=== PATIENT | male | born 1970 | race Caucasian/White ===

== ENCOUNTER 2020-10-21 07:31 | Outpatient (CLI) | payer BC, SELFPAY ==
--- NOTE | ~2020-10-21 | CT_ITS ---
EXAMINATION: CT abdomen wo con DATE: 10/21/2020 08:11 INDICATION: Ventral hernia without obstruction or gangrene TECHNIQUE: Computed tomography (CT) of the abdomen was performed without intravenous contrast. The do se-length product (DLP) was 788.58 mGy-cm. Automated exposure control and iterative reconstruction te chnique were employed. COMPARISON: None FINDINGS: Minimal dependent atelectasis is present in the lung bases. The heart size is normal. There is a 5 mm subpleural nodule of the lingula. The liver is diffusely low in attenuation when compared with the spleen, consistent with hepatic steatosis. A stone is present in the nondistended gallbladde r. The spleen, pancreas, and adrenal glands are normal. There are no pathologically enlarged abdomina l lymph nodes. The right kidney is normal. Nonobstructing stones of the left kidney measure 6 mm, 7 m m, and 2 mm. There is a 1.6 cm soft tissue density mass of the left kidney upper pole. There is a mid line epigastric hernia containing fat with a 1.8 cm neck approximately 4.5 cm above the umbilicus. A 3.1 cm area contiguous with the omental fat but just inside the abdomen at the site of the hernia lik herb reflects a small area of fat necrosis. There is a small extrarenal hernia. There are no dilated l oops of bowel. IMPRESSION: 1. Midline epigastric hernia containing fat with likely small amount of intra-abdominal fat necrosis of the omentum at this level. Small umbilical hernia containing fat. 2. Indeterminate soft tissue density lesion of the left kidney. Further evaluation by CT or MRI witho ut and with contrast is recommended. 4. Nonobstructing left nephrolithiasis. Reviewed, dictated and finalized at location A. IMPRESSION: 1. Midline epigastric hernia containing fat with likely small amount of intra-a bdominal fat necrosis of the omentum at this level. Small umbilical hernia cont aining fat. 2. Indeterminate soft tissue density lesion of the left kidney. Further evaluat ion by CT or MRI without and with contrast is recommended. 4. Nonobstructing left nephrolithiasis.
== END 2020-10-21 07:32 ==
PROVIDERS: Visit Provider Surgery
DX: K43.9 Ventral hernia without obstruction or gangrene (principal); R10.13 Epigastric pain; N20.0 Calculus of kidney
CPT/HCPCS: 74150

== ENCOUNTER 2020-10-21 08:16 | Outpatient (CLI) | payer BC, SELFPAY ==
--- NOTE | 2020-10-21 10:30 | ECG_ITS ---
Measurements Intervals Adin Rate: 83 P: 26 WA: 130 QRS: 21 QRSD: 111 T: 37 QT: 348 QTc: 409 Interpretive Statements SINUS RHYTHM INTRAVENTRICULAR CONDUCTION DELAY BASELINE ARTIFACT- I, III, AVL BORDERLINE ECG Electronically Signed On 10-21-2020 8:57:43 CDT by Jefferson Gomez D.O.
== END 2020-10-21 08:17 | disposition home or self-care (01) ==
LOC: ANHSURGERY 08:21
PROVIDERS: Visit Provider Surgery
DX: Z01.818 Encounter for other preprocedural examination (principal); K43.9 Ventral hernia without obstruction or gangrene; F17.200 Nicotine dependence, unspecified, uncomplicated
CPT/HCPCS: 36415; 86850; 86900; 86901; 93005

== ENCOUNTER → 2020-10-25 04:08 | Outpatient (CLI) | payer BC, SELFPAY ==
[2020-10-25 19:46] LABS: SARS-CoV-2 RNA PCR Negative
== END ==
PROVIDERS: Visit Provider Surgery
DX: Z01.812 Encounter for preprocedural laboratory examination (principal); Z20.822 Contact with and (suspected) exposure to COVID-19
CPT/HCPCS: C9803; U0003; U0005

== ENCOUNTER 2020-10-28 14:06 | Outpatient (CLI) | payer BC, SELFPAY ==
--- NOTE | ~2020-10-28 | CT_ITS ---
EXAMINATION: CT abdomen wo/w con DATE: 10/28/2020 14:32 INDICATION: Left kidney mass. TECHNIQUE: Computed tomography (CT) of the abdomen was performed without and with 100 mL Omnipaque 35 0 intravenous contrast. Automated exposure control and iterative reconstruction technique were employ ed. The dose-length product was 1507.64 mGy-cm. COMPARISON: CT abdomen 10/21/2020 FINDINGS: The visualized portions of the lung bases demonstrate mild atelectasis. There is a 7 mm nod ule in right middle lobe. No pleural effusion. The heart size is normal. No pericardial effusion. The re is diffuse hepatic steatosis. There is a gallstone in the gallbladder, which is normal in size. Th e spleen, pancreas, and adrenal glands are normal. There are cysts in the kidneys measuring up to 19 mm on the right. There is a 2.2 cm enhancing mass in left kidney upper pole directed posteriorly. The re are 3 stones in left kidney measuring up to 6 mm. There are umbilical and supraumbilical ventral h ernias containing fat. Again seen is fat stranding in the hernias and in the greater omentum, consist ent with fat necrosis. There are no pathologically enlarged lymph nodes. There is no free intraperito rao fluid. . IMPRESSION: 1. 2.2 cm enhancing mass in left kidney, consistent with renal cell carcinoma. 2. 7 mm pulmonary nodule, probably benign. Noncontrast low-dose chest CT is recommended in 6 months. 3. Umbilical and supraumbilical ventral hernias containing fat with associated fat necrosis. 4. Diffuse hepatic steatosis. Reviewed, dictated and finalized at location A. IMPRESSION: 1. 2.2 cm enhancing mass in left kidney, consistent with renal cell carcinoma. 2. 7 mm pulmonary nodule, probably benign. Noncontrast low-dose chest CT is rec ommended in 6 months. 3. Umbilical and supraumbilical ventral hernias containing fat with associated fat necrosis. 4. Diffuse hepatic steatosis.
[2020-10-28 14:23] LABS: Estimated Glomerular Filt Rate > 60
== END 2020-10-28 14:07 ==
LOC: MICIMG 14:06
PROVIDERS: Visit Provider Surgery
DX: N28.89 Other specified disorders of kidney and ureter (principal); R91.1 Solitary pulmonary nodule; K42.9 Umbilical hernia without obstruction or gangrene; K76.0 Fatty (change of) liver, not elsewhere classified
CPT/HCPCS: 74170; Q9967

== ENCOUNTER 2020-10-29 01:43 | Day surgery (SDC) | payer BC, SELFPAY ==
[2020-10-17 14:39] VITALS: BMI 18.6
[2020-10-29] VITALS (12 sets, daily range): BP systolic 119–177; BP diastolic 78–118; PULSE 76–89; RESP 13–20; TEMP 36.1–36.6; O2SAT 93–98
[2020-10-29] MEDS: LACTATED RINGERS 1,000 ML 30 ML IV CONT ×2 (07:59→11:29)
[2020-10-29] MEDS: ACETAMINOPHEN 500 MG TABLET 1000 MG PO (08:00)
[2020-10-29] MEDS: KETOROLAC 15 MG/ML VIAL (*BKC) IV PUSH (08:00)
--- NOTE | 2020-10-29 08:19 | WPDANESEPPF ---
Anes - Initial Pre Proc Eval Procedure: Operation Date: 10/29/20 09:30 Proposed Procedures p Laparoscopic Ventral Hernia Repair With Mesh, Da Beatriz Assisted - Sabino Daniel DO Date/Time: 10/29/20 08:19 Surgeon: Sabino Daniel DO Pre Op Diagnosis: ventral hernia Patient Data Age: 50 Gender: M Height: 5 ft 10 in Weight: 59 kg Allergies Allergy/AdvReac Type Severity Reaction Status Date / Time No Known Allergies Allergy Verified 10/17/20 14:39 Home Medications Medication Instructions Recorded Confirmed Type albuterol sulfate 90 mcg/actuation 2 inh INHALATION Q4H PRN #8.5 g 10/13/20 10/22/20 Rx aerosol inhaler Patient hx anesthesia problems: none Family hx anesthesia problems: none PMFSH Past Medical History Medical History Chronic right shoulder pain GERD without esophagitis History of diverticulitis 2018 History of kidney stones Hx of blood clots 2018 - large intestine wall Surgical History Surgical History History of arthroscopic surgery of shoulder 1990 - Left Family History Family History Father COPD (chronic obstructive pulmonary disease) Mother Hypertension Grandparent Cerebrovascular accident Emphysema lung Grandparent Heart disease Acute myocardial infarction Social History Social History Smoking packs per day: 1 Smoking cigarettes per day: 20.0 Years smoked: 35 Smoking pack-years: 35.00 Smoking status: Current every day smoker Tobacco type: cigarettes Alcohol intake: current Alcohol use details: 4/MONTH Substance use: never Substance use type: does not use Living arrangements: with family Additional living arrangements comments: Gender identity (if verbalized by the patient): Male Spiritual care concerns: No Agree to blood products: Yes Anes - Eval Final PreProcedure Day of Procedure 10/29/20 08:19 Patient weight: obese Heart: regular rate and rhythm Lungs: clear to auscultation Airway: Mallampati scale class II Neurological: alert and oriented Last oral intake: >/= 8 hours ASA classification: III Emergent: no Anesthetic plan: proceed Anesthesia type and monitoring: general ETT and standard monitoring Informed Consent: The patient's anesthetic plan and its attendant risks and benefits were discussed with the patient/family/POA. Questions were solicited and answers provided to the satisfaction of the patient/family/POA.
--- NOTE | 2020-10-29 09:08 | WPDHPUPDATE1 ---
History and Physical Update Update Date/Time: 10/29/20 09:08 History and Physical has been reviewed, including an updated exam of the patient. There are NO changes in the patient's condition. Risks, benefits, and alternatives have been discussed and questions answered. Patient agrees to proceed with procedure.
[2020-10-29] MEDS: ceFAZolin 2 GM/D5W 50 ML 2 GM/50 ML BAG IVPB (09:34)
--- NOTE | 2020-10-29 11:43 | PM.PROC ---
Procedure Note - Detailed Date of procedure: 10/29/20 Pre-op diagnosis: ventral hernia Post-op diagnosis: other (Incarcerated ventral hernia, umbilical hernia) Procedure performed: Laparoscopic incarcerated ventral hernia repair with Symbotex mesh, da Beatriz assisted Description of procedure: Procedure as well as risks, benefits, and alternatives were discussed with the patient. Written consent was obtained and placed in chart prior to procedure. Patient was brought back to surgical suite. He was placed supine on operating table. Time-out was done to confirm patient and procedure. He was then intubated by the anesthesia department. A bump was placed under his left hip, and the bed was flexed slightly to extend the space between his costal margin and iliac crest. His abdomen was prepped and draped in sterile fashion using chlorhexidine prep. A 5 millimeter incision was made in the left upper quadrant, and a 5 millimeter Optiview trocar was advanced through the abdominal layers under direct visualization. Once inside the abdominal cavity, carbon dioxide insufflation was used to create a pneumoperitoneum. His abdomen was inspected. An 8 millimeter incision was made in the left lower quadrant, and an 8 millimeter robotic trocar was placed under direct visualization. Another 8 millimeter incision was made in the left lateral abdomen, and an 8 millimeter robotic trocar was placed under direct visualization. Exparel was infiltrated along the lateral abdominal rehman to perform a transversus abdominis plane block bilaterally. The 5 millimeter port was removed, the incision was extended to 12 millimeters, and a 12 millimeter air seal port was placed under direct visualization. A Reji-Wright cone was also used to place an 0-Vicryl simple interrupted suture at this trocar site. The robotic arms were brought up to the patient's bedside and secured to the ports. The camera and instruments were inserted, and I then moved over to the robotic console and took control of the camera and instruments. After careful thorough inspection of the abdominal cavity, I began my dissection at the hernia. There was a supraumbilical ventral hernia incarcerated with omentum. The omentum was carefully reduced using blunt dissection and scissors with electrocautery. The patient was also found to have an umbilical hernia. The ventral hernia was about 2 cm wide and located about 3 cm superior to the umbilicus. The umbilical hernia measured 1 cm. The hernia sac of the ventral hernia was excised and removed and sent to the lab for pathology. The fascia was closed using an 0-Stratafix running suture in a vertical fashion. A 15 cm x 10 cm Symbotex mesh was then placed within the abdominal cavity. This was oriented vertically with the mesh centered on the hernia defect. The mesh was then secured to the fascia along the perimeter using 2 0 V lock running absorbable suture. The repair was inspected, and one final inspection was made around the abdominal cavity. The robotic instruments were then removed, and the robotic arms were disengaged from the trocars. The ports were then removed under direct visualization, the camera was removed, and the pneumoperitoneum was released. The 0 Vicryl transfascial suture was tied down. The skin of the incisions was then approximated using 4-0 Monocryl subcuticular suture. Exofin glue was then applied on top. The patient was then awakened from anesthesia, extubated, and transferred to recovery. Implants: Symbotex 15 cm x 10 cm mesh Anesthesia: GETA and local (Exparel) Surgeon: Sabino Daniel DO Estimated blood loss (mL): 5 Drains: No Pathology: yes (Ventral hernia sac) Complications: No immediate complications Condition: stable Disposition: same day Findings: This is a 50-year-old man who presents with a hernia that he 1st noticed about 4 years ago. The hernia is located just superior to his umbilicus. He has noticed this has gotten larger ove
[2020-10-29] MEDS: fentaNYL CITRATE INJ (*CRX) 100 MCG/2 ML VIAL 25 MCG IV PUSH ×4 (12:30→13:53)
[2020-10-29] MEDS: oxyCODONE HCL (*CRX) 5 MG TAB IR PO (13:26)
== END 2020-10-29 14:18 | disposition home or self-care (01) ==
PROVIDERS: Visit Provider Surgery
PROC: (CPT 49653; principal; 2020-10-29 09:30)
DX: K43.6 Other and unspecified ventral hernia with obstruction, without gangrene (principal); K42.9 Umbilical hernia without obstruction or gangrene; K21.9 Gastro-esophageal reflux disease without esophagitis; Z79.51 Long term (current) use of inhaled steroids; F17.210 Nicotine dependence, cigarettes, uncomplicated; E66.9 Obesity, unspecified; Z68.32 Body mass index [BMI] 32.0-32.9, adult
CPT/HCPCS: 49653; S2900; 36415; 86850; 86900; 86901; 88300; 93005; A9270; C1781; C9290; C9803; J0690; J1100; J1885; J2250; J2405; J2704; J2710; J3010; J7120; U0003; U0005

== ENCOUNTER 2020-12-25 08:16 | Outpatient (CLI) | payer BC, SELFPAY ==
--- NOTE | ~2020-12-25 | MR_ITS ---
EXAMINATION: MR shoulder RT wo con DATE: 12/25/2020 09:04 INDICATION: Right shoulder pain and limited range of motion TECHNIQUE: Magnetic resonance imaging (MRI) of the right shoulder was performed without intravenous c ontrast. Sequences included axial PD-weighted FS FSE, coronal oblique PD-weighted FS FSE, coronal obl ique T2-weighted FS FSE, sagittal PD-weighted FS FSE, and sagittal T1-weighted SE. COMPARISON: Shoulder radiograph dated 11/15/2020 FINDINGS: Coracoacromial arch: The acromion undersurface is curved in morphology (type II) with mild anterior and lateral downslopin g. The coracoacromial ligament is normal. Moderate acromioclavicular osteoarthritis with small inferi kathy directed osteophytes which contacts but does not exert mass effect upon the underlying supraspin atus. Rotator cuff: Mild supraspinatus tendinopathy with articular sided tear involving the entire AP width of the extend ing into the conjoined portion of the supraspinatus and infraspinatus tendons. This involves greater than 50% of the tendon thickness. Centrally within the region of the articular sided tear is a full-t hickness component to the tear which measures 1.5 cm AP as well as 1.5 cm medial collateral. The tear begins in the critical zone approximately 1 cm medial to the footplate. Moderate infraspinatus and m ild subscapularis tendinopathy without discrete tears. The teres minor tendon is normal. Normal rotat or cuff muscle bulk and signal. Biceps tendon, glenoid labrum and glenohumeral cartilage: Long head of the biceps tendon is normal. There is a tear of the superior to posterior glenoid labrum extending from the 12:30 position anteriorly and extending posteriorly to the 9:00 position. More am orphous mild increased signal at the inferior and anteroinferior labrum consistent with mild degenera tion. Mild partial-thickness cartilage loss with smooth chondral surface along the cephalad third of the glenoid and at the inferomedial and cephalad aspects of the humeral head. Fluid: Physiologic amount of fluid in the glenohumeral joint and biceps tendon sheath. There is extension of a minimal amount fluid into the subacromial/subdeltoid bursa through the full-thickness rotator cuff tear. No loose osteochondral bodies. Bones: Likely degenerative joint centered marrow edema at both sides of the acromioclavicular joint. Otherwi se normal marrow signal with no fracture or pathologic marrow replacing process. IMPRESSION: 1. Moderate to severe articular sided tear involving the entire AP width of the supraspinatus and con joined portion of the supraspinatus and infraspinatus tendons with central full-thickness 1.5 x 1.5 c m tear defect at the critical zone. 2. Mild glenohumeral osteoarthritis with tear of the superior to posterior glenoid labrum and mild de generation along inferior to anteroinferior labrum. 3. Moderate acromioclavicular osteoarthritis. Reviewed, dictated and finalized at location A. IMPRESSION: 1. Moderate to severe articular sided tear involving the entire AP width of the supraspinatus and conjoined portion of the supraspinatus and infraspinatus ten dons with central full-thickness 1.5 x 1.5 cm tear defect at the critical zone. 2. Mild glenohumeral osteoarthritis with tear of the superior to posterior luke oid labrum and mild degeneration along inferior to anteroinferior labrum. 3. Moderate acromioclavicular osteoarthritis.
== END 2020-12-25 08:17 ==
PROVIDERS: Visit Provider Orthopaedic Surgery
DX: M75.101 Unspecified rotator cuff tear or rupture of right shoulder, not specified as traumatic (principal); M19.011 Primary osteoarthritis, right shoulder; S43.491A Other sprain of right shoulder joint, initial encounter
CPT/HCPCS: 73221

== ENCOUNTER 2020-12-26 08:37 | Outpatient (CLI) | payer BC, SELFPAY ==
--- NOTE | 2021-01-19 10:43 | WPDHOMESLEEP ---
Sleep Study - Home Unattended Date of Study: 12/26/20 Ordering Provider: Fatuma Kulkarni MD Interpreting Provider: Debbi Medina MD Home Sleep Study Type: Apnea Link Air Height: 1.78 m Weight: 104.326 kg Body Mass Index: 33.0 Neck Circumference (inches): 17 [place]: 5 Reason for Sleep Study Fatigue, snoring Sleep History Nura Macdonald is a 50 year old man with complaints of snoring and fatigue. He occasionally sweats excessively at night, rarely falls asleep in the day, He never falls asleep involuntarily or while driving. He does not have loss of muscles tone with strong emotion or feel paralyzed on waking or falling asleep. Does not have vivid dreams on waking or falling asleep. He rarely has uncomfortable feelings in his legs, denies legs kicking at night. He occasionally remembers his dreams. He always has daytime sleepiness, occasionally has heartburn at night, rarely wakes up feeling refreshed. He is constant;y bothered by pain in the day, and wakes up due to pain at night. He feels stiff in the morning, waking with sore achy muscles. Normal bedtime is between 11 pm and 2 am, falling asleep in 30 seconds, waking 3-5 times in the night to urinate, roll over and go back to sleep. He wakes at 7 am. The weekend schedule is the same. He works many 10 to 16 hour days. He has gained weight in the last year. He does not take naps. Short naps are not refreshing. He is drowsy in the morning for 3 hours or longer. Habits: Tobacco 1 pack per day. Caffeine : 6 per day. Alcohol: maybe 1 a day. No recreational drugs. [facility] Past Medical History Medical History Arthritis of shoulder region, right Chronic right shoulder pain COPD (chronic obstructive pulmonary disease) GERD without esophagitis Hepatic steatosis History of diverticulitis 2019 History of kidney stones Hx of blood clots 2019 - large intestine wall Internal impingement of right shoulder Pulmonary nodule Right rotator cuff tendinitis Surgical History Surgical History H/O ventral hernia repair 10/29/20 Laparoscopic incarcerated ventral hernia repair with Symbotex mesh, da Beatriz assisted History of arthroscopic surgery of shoulder 1991 - Left History of umbilical hernia repair 10/29/20 Family History Family History Father COPD (chronic obstructive pulmonary disease) Mother Hypertension Grandparent Cerebrovascular accident Emphysema lung Grandparent Heart disease Acute myocardial infarction Social History Social History Smoking packs per day: 1 Smoking cigarettes per day: 20.0 Years smoked: 30 Smoking pack-years: 30.00 Tobacco type: cigarettes Alcohol intake: current Alcohol use details: 4 per month Substance use: never Substance use type: does not use Additional living arrangements comments: Gender identity (if verbalized by the patient): Male Spiritual care concerns: No Agree to blood products: Yes Medications Home Medications Medication Instructions Recorded Confirmed Type atorvastatin 10 mg tablet 10 mg PO QHS #90 tablet 11/26/20 12/18/20 Rx cholecalciferol (vitamin D3) 1,250 1,250 mcg PO WEEKLY #12 cap 11/26/20 12/18/20 Rx mcg (50,000 unit) capsule albuterol sulfate 90 mcg/actuation 2 inh INHALATION Q4H PRN #8.5 g 12/30/20 Rx aerosol inhaler Sleep Procedure This test was performed using 4 channel monitoring including respiratory effort channel, snoring channel, heart rate channel, and oxygen saturation channel. This study was scored using CMS guidelines. Sleep Architecture Not applicable for home sleep test. Respiratory Analysis Recording time 6 hours 24 minutes. Evaluation time 1 hour 34 minutes. The apnea-hypopnea index is 7; there are 4 apneas. There ar
[2021-01-19 11:28] VITALS: BMI 33.0
== END 2020-12-29 12:23 | disposition home or self-care (01) ==
LOC: ANHCSM 08:39
PROVIDERS: Visit Provider Family Medicine
DX: G47.33 Obstructive sleep apnea (adult) (pediatric) (principal)
CPT/HCPCS: 95806

== ENCOUNTER 2021-07-09 08:02 | Outpatient (CLI) | payer BC, SELFPAY ==
--- NOTE | ~2021-07-09 | CT_ITS ---
EXAMINATION:CT diagnostic chest wo con DATE: 07/09/2021 09:43 INDICATION: Solitary pulmonary nodule. TECHNIQUE: Computed tomography (CT) of the chest was performed without intravenous contrast. Automate d exposure control and iterative reconstruction technique were employed. The dose-length product (DLP ) was 218.78 mGy-cm. COMPARISON: CT abdomen 10/28/2020 FINDINGS: There is mild emphysema. There is a 7 mm nodule in right middle lobe, stable from 10/28/20. T here are multiple other scattered nodules in the lungs measuring up to 5 mm. No pleural effusion. The heart size is normal. There are coronary artery calcifications. No pericardial effusion. There is di ffuse hepatic steatosis. There is a gallstone in the gallbladder, which is normal in size. Partially visualized is a 1.7 cm mass in left kidney that enhanced on the prior CT. There is mild thoracic spon dylosis. IMPRESSION: 1. Pulmonary nodules measuring up to 7 mm, likely benign. 2. Partially visualized 1.7 cm mass in left kidney that enhanced on the prior CT, consistent with handy al cell carcinoma. 3. Mild emphysema. Reviewed, dictated and finalized at location E. UROLOGIST IMPRESSION: 1. Pulmonary nodules measuring up to 7 mm, likely benign. 2. Partially visualized 1.7 cm mass in left kidney that enhanced on the prior C T, consistent with renal cell carcinoma. 3. Mild emphysema.
--- NOTE | 2021-07-09 12:10 | WPDPFTINT ---
PFT Procedure Performed PFT Procedure Performed Spirometry with Pre/Post Bronchodilator Plethysmography (Lung Vol) Diffusing Cap (DLCO) Flow Vol Loop PFT Interpretation This is a pulmonary function test with pre and post-bronchodilator spirometry, plethysmography and diffusing capacity. The test was performed and results interpreted in accordance with the 2019 and 2005 ATS/ERS Task Force guidelines respectively using the Global Lung Function Initiative-2012 reference equations. Patient demonstrated good effort and cooperation. Reproducibility criteria were met. The quality of the pre bronchodilator spirometry maneuver was Grade A and post bronchodilator spirometry maneuver was Grade A. Findings: Spirometry: There is decreased maximal expiratory airflow at low lung volumes with concave expiratory flow tracing. The pre bronchodilator FVC is 4.33 L, 86% predicted. The pre bronchodilator FEV1 is 2.93 L, 74% predicted. The FEV1: FVC ratio is 68%. The post bronchodilator FVC is 4.57 L, representing a 5% increase. The post bronchodilator FEV1 is 3.28 L, representing a 12% increase. Plethysmography: The total lung capacity is 6.71 L, 96% predicted. Functional residual capacity is 3.46 L, 98% predicted. The residual volume is 2.04 L, 101% predicted. Diffusing capacity: The diffusing capacity unadjusted for hemoglobin is 24.0, 77% predicted. The diffusing capacity adjusted for alveolar volume is 4.42, 97% predicted. Impression: There is a mild obstructive abnormality with a normal FEV1 and with significant improvement after inhaling a single dose of albuterol. The lung volumes are normal. The diffusing capacity is normal. There are no prior studies for comparison
== END 2021-07-09 08:03 | disposition home or self-care (01) ==
PROVIDERS: PCP Family Medicine; Visit Provider Family Medicine
DX: R91.8 Other nonspecific abnormal finding of lung field (principal); N28.89 Other specified disorders of kidney and ureter; J43.9 Emphysema, unspecified; R94.2 Abnormal results of pulmonary function studies
CPT/HCPCS: 71250; 94060; 94726; 94729

== ENCOUNTER 2023-07-18 09:56 | Outpatient (CLI) | payer OTHER, SELFPAY ==
[2023-07-18 13:02] LABS: Basophils Absolute Auto 0.1 K/mm3 (0.0-0.1); Basophils Percent Auto 0.8 % (0.2-1.2); Eosinophils Absolute Auto 0.5 K/mm3 (0-0.3); Eosinophils Percent Auto 4.1 % (0-4.4); Hematocrit 53.7 % (42.0-52.0); Hemoglobin 18.1 g/dL (14.0-18.0); Immature Granulocyte Absolute 0.05 K/mm3 (0.00-0.031); Immature Granulocyte Percent A 0.4 % (0-0.5); Lymphocytes Absolute Auto 4.68 K/mm3 (0.9-3.2); Lymphocytes Percent Auto 37.9 % (18.3-44.2); Mean Corpuscular HGB Conc 33.7 g/dl (32-36); Mean Corpuscular Hemoglobin 31.2 pg (26-34); Mean Corpuscular Volume 92.4 fl (80-100); Mean Platelet Volume 12.6 fl (7.4-10.4); Monocytes Absolute Auto 0.7 K/mm3 (0.1-0.6); Monocytes Percent Auto 5.7 % (2.6-8.5); Neutrophils Absolute Auto 6.3 K/mm3 (1.3-6.7); Neutrophils Percent Auto 51.1 % (45.5-73.1); Platelet Count Result 155 k/mm3 (150-375); Red Blood Count 5.81 M/mm3 (4.6-6.20); Red Cell Distribution Width 13.1 % (11.5-14.5); White Blood Count 12.3 K/mm3 (4.5-10.0)
[2023-07-18 13:38] LABS: Alanine Aminotransferase 69 U/L (6-50); Albumin Level 4.5 g/dL (3.5-5.1); Alkaline Phosphatase 94 U/L (38-126); Anion Gap 2 mmol/L (8-16); Aspartate Amino Transferase 84 U/L (17-59); Bilirubin,Total 0.6 mg/dL (0.2-1.3); Blood Urea Nitrogen 10 mg/dL (9-20); Calcium 9.9 mg/dL (8.4-10.2); Carbon Dioxide 28 mmol/L (22-30); Chloride 106 mmol/L (98-107); Cholesterol 248 mg/dL (0-200); Estimated Glomerular Filt Rate > 60; Glucose 130 mg/dL (65-110); HDL Direct 31 mg/dL; Sodium 136 mmol/L (137-145); Triglycerides 268 mg/dL (<150)
[2023-07-18 13:50] LABS: LDL Cholesterol Direct 161 mg/dL
[2023-07-18 14:31] LABS: Hemoglobin A1C 6.5 % (<5.7)
[2023-07-21 09:24] LABS: PSA, Free 0.16 ng/mL; PSA, Total 0.5 ng/mL (<=4.0)
[2023-07-21 23:55] LABS: Vitamin D 1,25 (OH)2 Total 53 pg/mL (18-72); Vitamin D2 1,25 (OH)2 <8 pg/mL; Vitamin D3 1,25 (OH)2 53 pg/mL
== END 2023-07-18 09:57 | disposition home or self-care (01) ==
LOC: ANHGOSHLAB 09:57
PROVIDERS: PCP Family Medicine; Visit Provider Nurse Practitioner Family
DX: Z12.5 Encounter for screening for malignant neoplasm of prostate (principal); I10 Essential (primary) hypertension; R73.9 Hyperglycemia, unspecified; E55.9 Vitamin D deficiency, unspecified; Z12.11 Encounter for screening for malignant neoplasm of colon; Z00.00 Encounter for general adult medical examination without abnormal findings
CPT/HCPCS: 36415; 80053; 80061; 82652; 83036; 84153; 84154; 84443; 85025